=== PATIENT | male | born 1960 | race Caucasian/White ===

== ENCOUNTER 2018-07-09 00:03 | Observation (INO) ==
[2018-07-09] MEDS ORDERED: SODIUM CHLORIDE 0.9% 1,000 ML IV STA ×2 (00:48→01:44)
[2018-07-09 00:59] LABS: Basophils # 0.2 10*3/uL (0.0-0.2); Basophils % 0.9 % (0.0-0.8); Eosinophils % 5.8 % (0.00-10.9); Hematocrit 42.3 VOL% (42.0-52.0); Hemoglobin 13.5 GM/DL (14.0-18.0); Immature Granulocytes % 0.3 %; Immature Granulocytes Absolute 0.06 #; Lymphocytes # 5.8 10*3/uL (1.4-4.0); Lymphocytes % 32.8 % (21.2-54.2); Mean Corpuscular HGB Conc 31.9 GM/DL (32-36); Mean Corpuscular Volume 85.3 FL (87-102); Mean Platelet Volume 10.9 FL (9.6-12.0); Monocytes % 10.8 % (1.7-12.7); NRBC # 0.04 10*3/uL; Neutrophils % 49.4 % (38.7-73.9); Platelet Count 421 T/CUMM (130-400); Red Blood Count 4.96 MC/CUMM (3.8-5.5); Red Cell Distribution Width 18.5 % (9.3-17.3); White Blood Count 17.8 T/CUMM (4-12)
[2018-07-09 01:28] LABS: Alanine Aminotransferase 31 U/L (16-61); Albumin 3.5 G/DL (3.4-5.0); Alkaline Phosphatase 101 U/L (45-117); Aspartate Amino Transferase 18 U/L (0-37); Bilirubin,Total < 0.39 MG/DL (0.2-1.0); Blood Urea Nitrogen 21 MG/DL (7-18); Calcium 9.1 MG/DL (8.5-10.1); Glucose 283 MG/DL (74-106); Osmolality,Calculated 289.5 MOS/KG (273-304)
[2018-07-09] MEDS ORDERED: ONDANSETRON 4 MG/2 ML VIAL IV PRN (04:04)
[2018-07-09] MEDS ORDERED: ACETAMINOPHEN 325 MG TABLET PO PRN (04:04)
[2018-07-09 04:43] LABS: Apearance,Urine CLEAR (Clear); Bilirubin,Urine Negative (Negative); Blood, Urine Negative (Negative); Glucose,Urine (UA) 50 mg/dL (Negative); Granular Casts,Urine 1 /LPF (0-1); Hyaline Casts,Urine 17 /LPF (0-3); Ketones,Urine Negative (Negative); Mucus,Urine Occasional /LPF (Occasional); Nitrite,Urine Negative (Negative); Protein,Urine 30 MG/DL; RBC,Urine <1 /HPF (0-4); Urine Color Yellow (Yellow); Urine Specific Gravity 1.016 (1.001-1.035); Urine Urobilinogen < 2.0 EU/DL (0.2-1.0); WBC,Urine 1 /HPF (0-6)
[2018-07-09] MEDS: DEXTROSE 5% NACL 0.9% 1,000 ML IV SCH ×3 (06:05→20:43)
[2018-07-09] MEDS ORDERED: PNEUMOCOCCAL VACCINE (23 VALENT) 0.5 ML VIAL IM ONE (06:39)
[2018-07-09] MEDS ORDERED: DEXTROSE 50% 25 GM/50 ML SYRINGE IV PRN (08:06)
[2018-07-09] MEDS ORDERED: GLUCAGON 1 MG VIAL IM PRN (08:06)
[2018-07-09] MEDS: DOCUSATE SODIUM 100 MG CAPSULE PO SCH ×2 (09:37→20:42)
[2018-07-09] MEDS: PANTOPRAZOLE 40 MG VIAL IV SCH (09:37)
[2018-07-09] MEDS: INSULIN LISPRO 100 UNIT/ML SUBCUT SCH ×3 (12:00→20:42)
[2018-07-09] MEDS: metFORMIN 500 MG TABLET PO SCH (16:29)
[2018-07-10] MEDS: metFORMIN 500 MG TABLET PO SCH (08:21)
[2018-07-10] MEDS: DOCUSATE SODIUM 100 MG CAPSULE PO SCH ×2 (08:22→20:46)
[2018-07-10] MEDS: PANTOPRAZOLE 40 MG VIAL IV SCH (08:22)
[2018-07-10] MEDS: SERTRALINE 100 MG TABLET PO SCH (08:22)
[2018-07-10] MEDS: INSULIN LISPRO 100 UNIT/ML SUBCUT SCH ×4 (08:22→21:25)
[2018-07-10] MEDS: AMITRIPTYLINE 50 MG TABLET PO SCH (08:22)
[2018-07-10] MEDS ORDERED: LOSARTAN/HCTZ 50-12.5 MG TABLET PO SCH (09:00)
[2018-07-10] MEDS ORDERED: hydrALAZINE 20 MG/1 ML VIAL IV ONE (12:33)
[2018-07-10] MEDS: CARVEDILOL 25 MG TABLET PO SCH ×2 (15:23→20:46)
[2018-07-10] MEDS: SODIUM CHLORIDE 0.9% 1,000 ML IV SCH (15:28)
[2018-07-10 15:51] LABS: Basophils # 0.1 10*3/uL (0.0-0.2); Basophils % 0.9 % (0.0-0.8); Eosinophils # 0.6 10*3/uL (0.0-0.87); Eosinophils % 5.1 % (0.00-10.9); Hematocrit 41.5 VOL% (42.0-52.0); Hemoglobin 13.1 GM/DL (14.0-18.0); Immature Granulocytes % 0.3 %; Immature Granulocytes Absolute 0.03 #; Lymphocytes # 3.8 10*3/uL (1.4-4.0); Lymphocytes % 33.6 % (21.2-54.2); Mean Corpuscular HGB Conc 31.6 GM/DL (32-36); Mean Corpuscular Volume 84.9 FL (87-102); Monocytes % 10.6 % (1.7-12.7); Neutrophils % 49.5 % (38.7-73.9); Platelet Count 378 T/CUMM (130-400); Red Blood Count 4.89 MC/CUMM (3.8-5.5); Red Cell Distribution Width 17.7 % (9.3-17.3); White Blood Count 11.2 T/CUMM (4-12)
[2018-07-10 16:18] LABS: Calcium 9.2 MG/DL (8.5-10.1); Osmolality,Calculated 279.7 MOS/KG (273-304); Thyroid Stimulating Hormone 3.7 uIU/ml (0.358-3.74); Uric Acid 3.6 MG/DL (3.5-7.2)
[2018-07-10] MEDS: FOLIC ACID 1 MG TABLET PO SCH (20:46)
[2018-07-11 04:53] LABS: Basophils # 0.1 10*3/uL (0.0-0.2); Basophils % 0.9 % (0.0-0.8); Eosinophils # 0.6 10*3/uL (0.0-0.87); Hemoglobin 13.6 GM/DL (14.0-18.0); Immature Granulocytes % 0.4 %; Immature Granulocytes Absolute 0.04 #; Lymphocytes # 3.2 10*3/uL (1.4-4.0); Mean Corpuscular HGB Conc 30.9 GM/DL (32-36); Mean Corpuscular Volume 85.4 FL (87-102); Mean Platelet Volume 10.7 FL (9.6-12.0); Monocytes % 9.5 % (1.7-12.7); Neutrophils % 53.2 % (38.7-73.9); Platelet Count 403 T/CUMM (130-400); Red Blood Count 5.15 MC/CUMM (3.8-5.5); Red Cell Distribution Width 17.9 % (9.3-17.3); White Blood Count 10.6 T/CUMM (4-12)
[2018-07-11] MEDS: SODIUM CHLORIDE 0.9% 1,000 ML IV SCH (04:53)
[2018-07-11 05:17] LABS: Calcium 8.8 MG/DL (8.5-10.1); Osmolality,Calculated 282.8 MOS/KG (273-304)
[2018-07-11] MEDS ORDERED: GLIMEPIRIDE 2 MG TABLET PO SCH (08:00)
[2018-07-11] MEDS: FOLIC ACID 1 MG TABLET PO SCH ×3 (08:02→20:00)
[2018-07-11] MEDS: LOSARTAN/HCTZ 50-12.5 MG TABLET PO SCH (08:02)
[2018-07-11] MEDS: SERTRALINE 100 MG TABLET PO SCH (08:03)
[2018-07-11] MEDS: cloNIDine 0.1 MG TABLET PO SCH (08:03)
[2018-07-11] MEDS: DOCUSATE SODIUM 100 MG CAPSULE PO SCH ×3 (08:03→20:00)
[2018-07-11] MEDS: INSULIN LISPRO 100 UNIT/ML SUBCUT SCH ×4 (08:03→20:00)
[2018-07-11] MEDS: CARVEDILOL 25 MG TABLET PO SCH ×3 (08:03→20:00)
[2018-07-11] MEDS: AMITRIPTYLINE 50 MG TABLET PO SCH (08:03)
[2018-07-11] MEDS: PANTOPRAZOLE 40 MG VIAL IV SCH (08:04)
[2018-07-11] MEDS: DEXTROSE 5% NACL 0.9% 1,000 ML IV SCH (16:44)
[2018-07-12 05:15] LABS: Calcium 9.3 MG/DL (8.5-10.1); Osmolality,Calculated 278.4 MOS/KG (273-304)
[2018-07-12] MEDS ORDERED: POTASSIUM CHLORIDE 20 MEQ TABLET PO ONE (05:23)
[2018-07-12] MEDS: POTASSIUM CHLORIDE 20 MEQ TABLET PO PRN ×5 (05:35→20:52)
[2018-07-12] MEDS ORDERED: GLIMEPIRIDE 2 MG TABLET PO SCH (08:00)
[2018-07-12] MEDS: INSULIN LISPRO 100 UNIT/ML SUBCUT SCH ×4 (08:14→20:25)
[2018-07-12] MEDS: DOCUSATE SODIUM 100 MG CAPSULE PO SCH ×2 (09:40→20:53)
[2018-07-12] MEDS: FOLIC ACID 1 MG TABLET PO SCH ×2 (09:40→20:53)
[2018-07-12] MEDS: LOSARTAN/HCTZ 50-12.5 MG TABLET PO SCH (09:40)
[2018-07-12] MEDS: CARVEDILOL 25 MG TABLET PO SCH ×2 (09:40→20:53)
[2018-07-12] MEDS: cloNIDine 0.1 MG TABLET PO SCH (09:40)
[2018-07-12] MEDS: AMITRIPTYLINE 50 MG TABLET PO SCH (09:40)
[2018-07-12] MEDS: SERTRALINE 100 MG TABLET PO SCH (09:40)
[2018-07-12] MEDS: INSULIN GLARGINE 100 UNIT/ML SUBCUT SCH (09:45)
[2018-07-12] MEDS: PANTOPRAZOLE 40 MG VIAL IV SCH (09:46)
[2018-07-12] MEDS: metFORMIN 500 MG TABLET PO SCH (17:32)
[2018-07-13 08:26] VITALS: BP 152/94
[2018-07-13] MEDS: CARVEDILOL 25 MG TABLET PO SCH (09:34)
[2018-07-13] MEDS: AMITRIPTYLINE 50 MG TABLET PO SCH (09:34)
[2018-07-13] MEDS: DOCUSATE SODIUM 100 MG CAPSULE PO SCH (09:34)
[2018-07-13] MEDS: cloNIDine 0.1 MG TABLET PO SCH (09:34)
[2018-07-13] MEDS: FOLIC ACID 1 MG TABLET PO SCH (09:34)
[2018-07-13] MEDS: SERTRALINE 100 MG TABLET PO SCH (09:34)
[2018-07-13] MEDS: PANTOPRAZOLE 40 MG VIAL IV SCH (09:34)
[2018-07-13] MEDS: metFORMIN 500 MG TABLET PO SCH (09:34)
[2018-07-13] MEDS: LOSARTAN/HCTZ 50-12.5 MG TABLET PO SCH (09:34)
[2018-07-13] MEDS: INSULIN LISPRO 100 UNIT/ML SUBCUT SCH (09:45)
[2018-07-13] MEDS: INSULIN GLARGINE 100 UNIT/ML SUBCUT SCH (09:47)
== END 2018-07-13 11:00 | disposition home or self-care (01) ==
LOC: N.EDINP 00:03 → N.ED 00:03 → N.TELES 04:56
PROVIDERS: ADMIT Family Medicine; ATTEND Internal Medicine

== ENCOUNTER 2019-07-03 12:54 | Inpatient (IN) ==
[2019-07-03] MEDS ORDERED: ASPIRIN 325 MG TABLET PO STA (13:18)
[2019-07-03] MEDS ORDERED: ENOXAPARIN 30 MG/0.3 ML SYRINGE IV STA (13:26)
[2019-07-03] MEDS ORDERED: ENOXAPARIN 100 MG/ML SYRINGE SUBCUT STA (13:26)
[2019-07-03] MEDS ORDERED: ENOXAPARIN 100 MG/ML SYRINGE SUBCUT ONE (13:27)
[2019-07-03 13:37] LABS: Basophils # 0.1 10*3/uL (0.0-0.2); Basophils % 0.9 % (0.0-0.8); Eosinophils # 0.3 10*3/uL (0.0-0.87); Eosinophils % 1.9 % (0.00-10.9); Hematocrit 40.3 VOL% (42.0-52.0); Hemoglobin 12.9 GM/DL (14.0-18.0); Immature Granulocytes % 0.2 %; Immature Granulocytes Absolute 0.03 #; Lymphocytes # 2.1 10*3/uL (1.4-4.0); Lymphocytes % 14.9 % (21.2-54.2); Mean Corpuscular Volume 84.3 FL (87-102); Mean Platelet Volume 9.7 FL (9.6-12.0); Monocytes % 6.8 % (1.7-12.7); NRBC # 0.02 10*3/uL; Neutrophils % 75.3 % (38.7-73.9); Platelet Count 390 T/CUMM (130-400); Red Blood Count 4.78 MC/CUMM (3.8-5.5); Red Cell Distribution Width 18.3 % (9.3-17.3)
[2019-07-03] MEDS ORDERED: NITROGLYCERIN SL 0.4 MG TABLET SL ONE (13:41)
[2019-07-03 13:43] LABS: PT Patient Result 10.6 SECS (9.8-11.9)
[2019-07-03 13:50] LABS: Calcium 9.1 MG/DL (8.5-10.1); Osmolality,Calculated 280.1 MOS/KG (273-304)
[2019-07-03] MEDS ORDERED: HYDROmorphone 2 MG/1 ML VIAL ONE (13:59)
[2019-07-03] MEDS ORDERED: MIDAZOLAM 2 MG/2 ML VIAL ONE (13:59)
[2019-07-03] MEDS ORDERED: LIDOCAINE 1% 20 ML VIAL ONE (13:59)
[2019-07-03] MEDS ORDERED: TIROFIBAN 5,000 MCG/100 ML PREMIX IV ONE (14:22)
[2019-07-03] MEDS ORDERED: TIROFIBAN 5,000 MCG/100 ML PREMIX IV SCH (14:35)
[2019-07-03] MEDS ORDERED: TICAGRELOR 90 MG TABLET ONE (15:01)
[2019-07-03] MEDS ORDERED: ROSUVASTATIN 20 MG TABLET PO SCH (15:11)
[2019-07-03 16:18] LABS: CKMB % 2.1 %
[2019-07-03 16:26] LABS: Troponin I 1.62 NG/ML (0.00-0.045)
[2019-07-03] MEDS ORDERED: GLUCAGON 1 MG VIAL IM PRN (16:57)
[2019-07-03] MEDS ORDERED: DEXTROSE 50% 25 GM/50 ML VIAL IV PRN (16:57)
[2019-07-03] MEDS ORDERED: carvediloL 3.125 MG TABLET PO SCH (21:00)
[2019-07-03] MEDS: carvediloL 12.5 MG TABLET PO SCH (21:32)
[2019-07-03] MEDS: ROSUVASTATIN 20 MG TABLET PO SCH (21:32)
[2019-07-04] MEDS: AMITRIPTYLINE 50 MG TABLET PO SCH (08:51)
[2019-07-04] MEDS: ROSUVASTATIN 20 MG TABLET PO SCH (08:51)
[2019-07-04] MEDS: carvediloL 12.5 MG TABLET PO SCH ×2 (08:51→20:18)
[2019-07-04] MEDS: SERTRALINE 100 MG TABLET PO SCH (08:51)
[2019-07-04] MEDS: TICAGRELOR 90 MG TABLET PO SCH ×2 (09:27→20:19)
[2019-07-04] MEDS: ASPIRIN EC 81 MG TABLET PO SCH (09:27)
[2019-07-04] MEDS ORDERED: diphenhydrAMINE CAP 25 MG CAPSULE PO PRN (11:16)
[2019-07-04] MEDS ORDERED: MAGNESIUM HYDROXIDE SUSP 30 ML UDCUP PO PRN (11:16)
[2019-07-04 11:29] LABS: Basophils # 0.1 10*3/uL (0.0-0.2); Basophils % 0.5 % (0.0-0.8); Eosinophils # 0.3 10*3/uL (0.0-0.87); Eosinophils % 2.4 % (0.00-10.9); Hematocrit 40.1 VOL% (42.0-52.0); Hemoglobin 13.3 GM/DL (14.0-18.0); Immature Granulocytes % 0.5 %; Immature Granulocytes Absolute 0.06 #; Lymphocytes # 2.9 10*3/uL (1.4-4.0); Lymphocytes % 22.2 % (21.2-54.2); Mean Corpuscular HGB Conc 33.2 GM/DL (32-36); Mean Corpuscular Volume 82.2 FL (87-102); Monocytes % 8.9 % (1.7-12.7); Neutrophils % 65.5 % (38.7-73.9); Platelet Count 404 T/CUMM (130-400); Red Blood Count 4.88 MC/CUMM (3.8-5.5); Red Cell Distribution Width 18.3 % (9.3-17.3); White Blood Count 13.2 T/CUMM (4-12)
[2019-07-04] MEDS ORDERED: INSULIN LISPRO 100 UNIT/ML SUBCUT SCH (11:30)
[2019-07-04 11:45] LABS: Calcium 9.1 MG/DL (8.5-10.1)
[2019-07-04 11:53] LABS: CKMB % 5.4 %; Calcium 9.6 MG/DL (8.5-10.1); Osmolality,Calculated 267.2 MOS/KG (273-304)
[2019-07-04 11:56] LABS: Troponin I 19.5 NG/ML (0.00-0.045)
[2019-07-04] MEDS: LOSARTAN 25 MG TABLET PO SCH (16:05)
[2019-07-04] MEDS: OMEGA 3 ACID ETHYL ESTERS 1 GM CAPSULE PO SCH (20:18)
[2019-07-04] MEDS ORDERED: ROSUVASTATIN 20 MG TABLET PO SCH (21:00)
[2019-07-05 06:17] LABS: Basophils # 0.1 10*3/uL (0.0-0.2); Basophils % 0.6 % (0.0-0.8); Eosinophils # 0.7 10*3/uL (0.0-0.87); Eosinophils % 4.2 % (0.00-10.9); Hematocrit 41.2 VOL% (42.0-52.0); Hemoglobin 13.4 GM/DL (14.0-18.0); Immature Granulocytes % 0.4 %; Immature Granulocytes Absolute 0.06 #; Lymphocytes # 4.3 10*3/uL (1.4-4.0); Lymphocytes % 27.9 % (21.2-54.2); Mean Corpuscular HGB Conc 32.5 GM/DL (32-36); Mean Corpuscular Volume 83.4 FL (87-102); Mean Platelet Volume 10.2 FL (9.6-12.0); Monocytes % 11.5 % (1.7-12.7); NRBC # 0.02 10*3/uL; Neutrophils % 55.4 % (38.7-73.9); Platelet Count 416 T/CUMM (130-400); Red Blood Count 4.94 MC/CUMM (3.8-5.5); Red Cell Distribution Width 18.5 % (9.3-17.3); White Blood Count 15.4 T/CUMM (4-12)
[2019-07-05 06:38] LABS: Calcium 8.8 MG/DL (8.5-10.1); Osmolality,Calculated 272.1 MOS/KG (273-304)
[2019-07-05] MEDS ORDERED: POTASSIUM CHLORIDE 20 MEQ TABLET PO ONE (07:30)
[2019-07-05 07:54] VITALS: BP 162/95
[2019-07-05] MEDS: AMITRIPTYLINE 50 MG TABLET PO SCH (09:28)
[2019-07-05] MEDS: LOSARTAN 25 MG TABLET PO SCH (09:28)
[2019-07-05] MEDS: TICAGRELOR 90 MG TABLET PO SCH (09:28)
[2019-07-05] MEDS: SERTRALINE 100 MG TABLET PO SCH (09:28)
[2019-07-05] MEDS: ASPIRIN EC 81 MG TABLET PO SCH (09:28)
[2019-07-05] MEDS: OMEGA 3 ACID ETHYL ESTERS 1 GM CAPSULE PO SCH (09:28)
[2019-07-05] MEDS: carvediloL 12.5 MG TABLET PO SCH (09:28)
== END 2019-07-05 10:27 | disposition home or self-care (01) | DRG 247 ==
LOC: N.ED 12:54 → N.EDINP 14:15 → N.ICU 14:38 → N.TELEN 07-04 10:51
PROVIDERS: ADMIT Internal Medicine Cardiovascular Disease; ATTEND Internal Medicine Cardiovascular Disease
PROC: CLCCHCL (ICD-10-PCS; 2019-07-03 14:45)

== ENCOUNTER 2019-11-14 19:05 | Observation (INO) ==
[2019-11-14] MEDS ORDERED: ASPIRIN 325 MG TABLET PO STA (19:41)
[2019-11-14 19:59] LABS: Basophils # 0.1 10*3/uL (0.0-0.2); Basophils % 0.7 % (0.0-0.8); Eosinophils # 0.5 10*3/uL (0.0-0.87); Hematocrit 36.7 VOL% (42.0-52.0); Hemoglobin 11.8 GM/DL (14.0-18.0); Immature Granulocytes % 0.2 %; Immature Granulocytes Absolute 0.02 #; Lymphocytes # 4.7 10*3/uL (1.4-4.0); Lymphocytes % 43.7 % (21.2-54.2); Mean Corpuscular HGB Conc 32.2 GM/DL (32-36); Mean Corpuscular Volume 82.3 FL (87-102); Mean Platelet Volume 9.9 FL (9.6-12.0); Monocytes % 8.7 % (1.7-12.7); NRBC # 0.02 10*3/uL; Neutrophils % 41.7 % (38.7-73.9); Platelet Count 314 T/CUMM (130-400); Red Blood Count 4.46 MC/CUMM (3.8-5.5); Red Cell Distribution Width 18.3 % (9.3-17.3); White Blood Count 10.8 T/CUMM (4-12)
[2019-11-14 20:01] LABS: Calcium 8.6 MG/DL (8.5-10.1); Osmolality,Calculated 284.7 MOS/KG (273-304)
[2019-11-14] MEDS ORDERED: MORPHINE 4 MG/1 ML VIAL IV STA (20:16)
[2019-11-14] MEDS ORDERED: MORPHINE 4 MG/1 ML VIAL IV PRN (20:16)
[2019-11-14] MEDS ORDERED: ACETAMINOPHEN 325 MG TABLET PO PRN (20:16)
[2019-11-14] MEDS ORDERED: ONDANSETRON 4 MG/2 ML VIAL IV PRN (20:16)
[2019-11-14] MEDS ORDERED: ONDANSETRON 4 MG/2 ML VIAL IV STA (20:16)
[2019-11-14] MEDS: ENOXAPARIN 40 MG/0.4 ML SYRINGE SUBCUT SCH (22:47)
[2019-11-14] MEDS: DOCUSATE SODIUM 100 MG CAPSULE PO SCH (22:47)
[2019-11-14] MEDS: ROSUVASTATIN 20 MG TABLET PO SCH (22:52)
[2019-11-15] MEDS: FOLIC ACID 1 MG TABLET PO SCH ×2 (08:46→21:06)
[2019-11-15] MEDS: AMITRIPTYLINE 50 MG TABLET PO SCH (08:46)
[2019-11-15] MEDS: CLOPIDOGREL 75 MG TABLET PO SCH (08:46)
[2019-11-15] MEDS: LOSARTAN 50 MG TABLET PO SCH (08:46)
[2019-11-15] MEDS: DOCUSATE SODIUM 100 MG CAPSULE PO SCH ×2 (08:46→21:06)
[2019-11-15] MEDS: ASPIRIN EC 81 MG TABLET PO SCH (08:46)
[2019-11-15] MEDS: PANTOPRAZOLE 40 MG TABLET PO SCH (08:47)
[2019-11-15] MEDS: SERTRALINE 100 MG TABLET PO SCH (08:47)
[2019-11-15] MEDS ORDERED: INSULIN LISPRO 100 UNIT/ML SUBCUT SCH (11:30)
[2019-11-15] MEDS: INSULIN LISPRO 100 UNIT/ML SUBCUT SCH ×4 (13:00→21:11)
[2019-11-15] MEDS: ENOXAPARIN 40 MG/0.4 ML SYRINGE SUBCUT SCH (21:06)
[2019-11-15] MEDS: ROSUVASTATIN 20 MG TABLET PO SCH (21:06)
[2019-11-16 06:33] LABS: Basophils # 0.1 10*3/uL (0.0-0.2); Basophils % 0.8 % (0.0-0.8); Eosinophils # 0.7 10*3/uL (0.0-0.87); Eosinophils % 6.2 % (0.00-10.9); Hematocrit 39.1 VOL% (42.0-52.0); Hemoglobin 12.2 GM/DL (14.0-18.0); Immature Granulocytes % 0.4 %; Immature Granulocytes Absolute 0.05 #; Lymphocytes # 3.3 10*3/uL (1.4-4.0); Lymphocytes % 27.7 % (21.2-54.2); Mean Corpuscular HGB Conc 31.2 GM/DL (32-36); Mean Corpuscular Volume 82.8 FL (87-102); Mean Platelet Volume 10.6 FL (9.6-12.0); Monocytes % 10.1 % (1.7-12.7); NRBC # 0.04 10*3/uL; Neutrophils % 54.8 % (38.7-73.9); Platelet Count 342 T/CUMM (130-400); Red Blood Count 4.72 MC/CUMM (3.8-5.5); Red Cell Distribution Width 18.3 % (9.3-17.3)
[2019-11-16 07:03] LABS: Calcium 8.9 MG/DL (8.5-10.1); Osmolality,Calculated 280.1 MOS/KG (273-304)
[2019-11-16 08:47] VITALS: BP 166/78
[2019-11-16] MEDS: CLOPIDOGREL 75 MG TABLET PO SCH (09:15)
[2019-11-16] MEDS: LOSARTAN 50 MG TABLET PO SCH (09:15)
[2019-11-16] MEDS: PANTOPRAZOLE 40 MG TABLET PO SCH (09:15)
[2019-11-16] MEDS: SERTRALINE 100 MG TABLET PO SCH (09:15)
[2019-11-16] MEDS: FOLIC ACID 1 MG TABLET PO SCH (09:16)
[2019-11-16] MEDS: ASPIRIN EC 81 MG TABLET PO SCH (09:16)
[2019-11-16] MEDS: AMITRIPTYLINE 50 MG TABLET PO SCH (09:16)
[2019-11-16] MEDS: DOCUSATE SODIUM 100 MG CAPSULE PO SCH (09:16)
[2019-11-16] MEDS: INSULIN LISPRO 100 UNIT/ML SUBCUT SCH (09:16)
[2019-11-17] MEDS ORDERED: ERGOCALCIFEROL 50,000 UNIT CAPSULE PO SCH (08:27)
[2019-11-17] MEDS ORDERED: METHOTREXATE 2.5 MG TABLET PO SCH (09:00)
== END 2019-11-16 11:30 | disposition home or self-care (01) ==
LOC: N.EDINP 19:05 → N.ED 19:05 → N.TELEN 20:44
PROVIDERS: ADMIT Internal Medicine; ATTEND Internal Medicine

== ENCOUNTER 2020-12-17 17:53 | Observation (INO) ==
[2020-12-17 18:25] LABS: Basophils # 0.1 10*3/uL (0.0-0.2); Basophils % 0.7 % (0.0-0.8); Eosinophils # 0.8 10*3/uL (0.0-0.87); Eosinophils % 5.3 % (0.00-10.9); Hematocrit 37.7 VOL% (42.0-52.0); Hemoglobin 11.6 GM/DL (14.0-18.0); Immature Granulocytes % 0.3 %; Immature Granulocytes Absolute 0.04 #; Lymphocytes # 5.8 10*3/uL (1.4-4.0); Lymphocytes % 37.6 % (21.2-54.2); Mean Corpuscular HGB Conc 30.8 GM/DL (32-36); Mean Corpuscular Volume 80.2 FL (87-102); Mean Platelet Volume 10.5 FL (9.6-12.0); Monocytes % 6.7 % (1.7-12.7); NRBC # 0.04 10*3/uL; Neutrophils % 49.4 % (38.7-73.9); Platelet Count 317 T/CUMM (130-400); Red Cell Distribution Width 20.1 % (9.3-17.3); White Blood Count 15.3 T/CUMM (4-12)
[2020-12-17 18:48] LABS: Alanine Aminotransferase 34 U/L (16-61); Albumin 3.2 G/DL (3.4-5.0); Alkaline Phosphatase 88 U/L (45-117); Aspartate Amino Transferase 20 U/L (0-37); Bilirubin,Total < 0.39 MG/DL (0.20-1.00); Blood Urea Nitrogen 19 MG/DL (7-18); Calcium 9.2 MG/DL (8.5-10.1); Carbon Dioxide 28 MMOL/L (21-32); Estimated Glom Filtration Rate 64 ML/MIN; Glucose 394 MG/DL (74-106); Osmolality,Calculated 290.8 MOS/KG (273-304); Potassium 4.5 MMOL/L (3.5-5.1); Sodium 137 MMOL/L (136-145); Total Protein 6.5 G/DL (6.4-8.2)
[2020-12-17] MEDS ORDERED: ALUM/MAG/SIMETH/LIDO VISC 1:1 30 ML BOTTLE PO STA (19:33)
[2020-12-17] MEDS ORDERED: ENOXAPARIN 100 MG/ML SYRINGE SUBCUT STA (19:33)
[2020-12-17] MEDS ORDERED: ONDANSETRON 4 MG/2 ML VIAL IV STA (19:33)
[2020-12-17] MEDS ORDERED: ASPIRIN 325 MG TABLET PO STA (19:33)
[2020-12-17] MEDS ORDERED: MORPHINE 2 MG/1 ML SYRINGE IV STA (19:33)
[2020-12-17] MEDS ORDERED: NITROGLYCERIN 2% OINT 1 INCH/GM PACK TOP STA (19:33)
[2020-12-17] MEDS ORDERED: ONDANSETRON 4 MG/2 ML VIAL IV PRN (23:13)
[2020-12-17] MEDS ORDERED: DEXTROSE 50% 25 GM/50 ML VIAL IV PRN (23:13)
[2020-12-17] MEDS ORDERED: MORPHINE 2 MG/1 ML SYRINGE IV PRN (23:13)
[2020-12-17] MEDS ORDERED: GLUCAGON 1 MG VIAL IM PRN (23:13)
[2020-12-17] MEDS: DOCUSATE SODIUM 100 MG CAPSULE PO SCH (23:47)
[2020-12-17] MEDS: SODIUM CHLORIDE 0.9% 1,000 ML IV SCH (23:47)
[2020-12-17] MEDS: FOLIC ACID 1 MG TABLET PO SCH (23:47)
[2020-12-17] MEDS: ROSUVASTATIN 20 MG TABLET PO SCH (23:47)
[2020-12-17] MEDS: INSULIN REGULAR 100 UNIT/ML SUBCUT SCH (23:47)
[2020-12-17] MEDS: NITROGLYCERIN 2% OINT 1 INCH/GM PACK TOP SCH (23:56)
[2020-12-18 05:45] LABS: Basophils # 0.1 10*3/uL (0.0-0.2); Basophils % 0.9 % (0.0-0.8); Eosinophils % 7.7 % (0.00-10.9); Hematocrit 35.5 VOL% (42.0-52.0); Hemoglobin 10.9 GM/DL (14.0-18.0); Immature Granulocytes % 0.3 %; Immature Granulocytes Absolute 0.04 #; Lymphocytes # 5.3 10*3/uL (1.4-4.0); Lymphocytes % 39.5 % (21.2-54.2); Mean Corpuscular HGB Conc 30.7 GM/DL (32-36); Mean Corpuscular Volume 80.7 FL (87-102); Mean Platelet Volume 10.6 FL (9.6-12.0); Monocytes % 8.6 % (1.7-12.7); NRBC # 0.06 10*3/uL; Platelet Count 303 T/CUMM (130-400); Red Cell Distribution Width 20.2 % (9.3-17.3); White Blood Count 13.5 T/CUMM (4-12)
[2020-12-18] MEDS: INSULIN REGULAR 100 UNIT/ML SUBCUT SCH (05:46)
[2020-12-18 06:40] LABS: Albumin 2.8 G/DL (3.4-5.0); Bilirubin,Total 0.4 MG/DL (0.20-1.00); Calcium 8.4 MG/DL (8.5-10.1); Osmolality,Calculated 284.4 MOS/KG (273-304); Potassium 4.3 MMOL/L (3.5-5.1); Risk Ratio 2.15; Total Protein 5.9 G/DL (6.4-8.2)
[2020-12-18] MEDS: MELOXICAM 7.5 MG TABLET PO SCH (08:01)
[2020-12-18] MEDS: CLOPIDOGREL 75 MG TABLET PO SCH (08:02)
[2020-12-18] MEDS: NITROGLYCERIN 2% OINT 1 INCH/GM PACK TOP SCH ×2 (08:02→20:17)
[2020-12-18] MEDS: FOLIC ACID 1 MG TABLET PO SCH ×2 (08:02→20:17)
[2020-12-18] MEDS: LOSARTAN 50 MG TABLET PO SCH (08:02)
[2020-12-18] MEDS: DOCUSATE SODIUM 100 MG CAPSULE PO SCH ×2 (08:03→20:16)
[2020-12-18] MEDS: SERTRALINE 100 MG TABLET PO SCH (08:03)
[2020-12-18] MEDS: AMITRIPTYLINE 25 MG TABLET PO SCH (08:03)
[2020-12-18] MEDS: PANTOPRAZOLE 40 MG TABLET PO SCH (08:03)
[2020-12-18] MEDS ORDERED: DEXTROSE 50% 25 GM/50 ML VIAL IV PRN (08:58)
[2020-12-18] MEDS ORDERED: PANTOPRAZOLE 40 MG VIAL IV SCH (09:00)
[2020-12-18] MEDS ORDERED: ASPIRIN EC 325 MG TABLET PO SCH (09:00)
[2020-12-18] MEDS: INSULIN GLARGINE 100 UNIT/ML SUBCUT SCH (09:01)
[2020-12-18] MEDS: metFORMIN 500 MG TABLET PO SCH ×2 (09:02→20:17)
[2020-12-18] MEDS: AZITHROMYCIN 250 MG TABLET PO SCH (09:02)
[2020-12-18] MEDS: carvediloL 25 MG TABLET PO SCH ×2 (09:03→20:16)
[2020-12-18] MEDS: CYANOCOBALAMIN 500 MCG TABLET PO SCH (09:03)
[2020-12-18] MEDS: cefTRIAXone 1,000 MG in SODIUM CHLORIDE 0.9% 100 ML IV SCH (09:04)
[2020-12-18] MEDS: ACETAMINOPHEN 325 MG TABLET PO PRN ×2 (09:17→20:18)
[2020-12-18] MEDS: INSULIN LISPRO 100 UNIT/ML SUBCUT SCH ×3 (11:47→20:17)
[2020-12-18] MEDS: ROSUVASTATIN 20 MG TABLET PO SCH (20:16)
[2020-12-18] MEDS: SODIUM CHLORIDE 0.9% 1,000 ML IV SCH (20:30)
[2020-12-19] MEDS ORDERED: guaiFENesin 200 MG/10 ML UDCUP PO PRN (02:49)
[2020-12-19 05:27] LABS: Basophils # 0.1 10*3/uL (0.0-0.2); Basophils % 0.6 % (0.0-0.8); Eosinophils % 5.6 % (0.00-10.9); Hematocrit 34.5 VOL% (42.0-52.0); Hemoglobin 10.6 GM/DL (14.0-18.0); Immature Granulocytes % 0.6 %; Immature Granulocytes Absolute 0.11 #; Lymphocytes # 2.9 10*3/uL (1.4-4.0); Lymphocytes % 16.6 % (21.2-54.2); Mean Corpuscular HGB Conc 30.7 GM/DL (32-36); Mean Corpuscular Volume 80.8 FL (87-102); Mean Platelet Volume 11.3 FL (9.6-12.0); NRBC # 0.11 10*3/uL; Neutrophils % 65.6 % (38.7-73.9); Platelet Count 288 T/CUMM (130-400); Red Blood Count 4.27 MC/CUMM (3.8-5.5); Red Cell Distribution Width 20.1 % (9.3-17.3); White Blood Count 17.3 T/CUMM (4-12)
[2020-12-19] MEDS: ACETAMINOPHEN 325 MG TABLET PO PRN (05:29)
[2020-12-19] MEDS: MELOXICAM 7.5 MG TABLET PO SCH (08:19)
[2020-12-19] MEDS: DOCUSATE SODIUM 100 MG CAPSULE PO SCH ×2 (08:20→20:52)
[2020-12-19] MEDS: SERTRALINE 100 MG TABLET PO SCH (08:20)
[2020-12-19] MEDS: AMITRIPTYLINE 25 MG TABLET PO SCH (08:20)
[2020-12-19] MEDS: CLOPIDOGREL 75 MG TABLET PO SCH (08:20)
[2020-12-19] MEDS: carvediloL 25 MG TABLET PO SCH ×2 (08:20→20:51)
[2020-12-19] MEDS: AZITHROMYCIN 250 MG TABLET PO SCH (08:20)
[2020-12-19] MEDS: PANTOPRAZOLE 40 MG TABLET PO SCH (08:20)
[2020-12-19] MEDS: FOLIC ACID 1 MG TABLET PO SCH ×2 (08:20→20:52)
[2020-12-19] MEDS: CYANOCOBALAMIN 500 MCG TABLET PO SCH (08:20)
[2020-12-19] MEDS: LOSARTAN 50 MG TABLET PO SCH (08:20)
[2020-12-19] MEDS: metFORMIN 500 MG TABLET PO SCH ×2 (08:20→20:52)
[2020-12-19] MEDS: ASPIRIN EC 81 MG TABLET PO SCH (08:21)
[2020-12-19] MEDS: INSULIN GLARGINE 100 UNIT/ML SUBCUT SCH (08:21)
[2020-12-19] MEDS: ENOXAPARIN 40 MG/0.4 ML SYRINGE SUBCUT SCH (08:54)
[2020-12-19] MEDS: INSULIN LISPRO 100 UNIT/ML SUBCUT SCH ×4 (08:54→20:59)
[2020-12-19] MEDS: NITROGLYCERIN 2% OINT 1 INCH/GM PACK TOP SCH (08:55)
[2020-12-19] MEDS ORDERED: ENOXAPARIN 100 MG/ML SYRINGE SUBCUT SCH (09:00)
[2020-12-19] MEDS: cefTRIAXone 1,000 MG in SODIUM CHLORIDE 0.9% 100 ML IV SCH (09:32)
[2020-12-19] MEDS: ISOSORBIDE MONONITRATE 30 MG TABLET PO SCH (09:44)
[2020-12-19] MEDS: SODIUM CHLORIDE 0.9% 1,000 ML IV SCH (18:14)
[2020-12-19] MEDS: ROSUVASTATIN 20 MG TABLET PO SCH (20:52)
[2020-12-20 05:15] LABS: Basophils # 0.1 10*3/uL (0.0-0.2); Basophils % 0.6 % (0.0-0.8); Eosinophils # 0.8 10*3/uL (0.0-0.87); Eosinophils % 6.4 % (0.00-10.9); Hematocrit 34.1 VOL% (42.0-52.0); Hemoglobin 10.8 GM/DL (14.0-18.0); Immature Granulocytes % 0.4 %; Immature Granulocytes Absolute 0.05 #; Lymphocytes # 3.3 10*3/uL (1.4-4.0); Lymphocytes % 25.9 % (21.2-54.2); Mean Corpuscular HGB Conc 31.7 GM/DL (32-36); Mean Corpuscular Volume 79.9 FL (87-102); Mean Platelet Volume 11.5 FL (9.6-12.0); Monocytes % 10.9 % (1.7-12.7); NRBC # 0.11 10*3/uL; Neutrophils % 55.8 % (38.7-73.9); Platelet Count 285 T/CUMM (130-400); Red Blood Count 4.27 MC/CUMM (3.8-5.5); Red Cell Distribution Width 20.3 % (9.3-17.3); White Blood Count 12.9 T/CUMM (4-12)
[2020-12-20 05:42] LABS: Albumin 2.7 G/DL (3.4-5.0); Calcium 8.5 MG/DL (8.5-10.1); Osmolality,Calculated 276.5 MOS/KG (273-304); Potassium 3.6 MMOL/L (3.5-5.1); Total Protein 6.1 G/DL (6.4-8.2)
[2020-12-20 08:33] VITALS: BP 171/93
[2020-12-20] MEDS: ENOXAPARIN 40 MG/0.4 ML SYRINGE SUBCUT SCH (08:41)
[2020-12-20] MEDS: CLOPIDOGREL 75 MG TABLET PO SCH (08:42)
[2020-12-20] MEDS: LOSARTAN 50 MG TABLET PO SCH (08:42)
[2020-12-20] MEDS: CYANOCOBALAMIN 500 MCG TABLET PO SCH (08:42)
[2020-12-20] MEDS: AMITRIPTYLINE 25 MG TABLET PO SCH (08:42)
[2020-12-20] MEDS: carvediloL 25 MG TABLET PO SCH (08:42)
[2020-12-20] MEDS: PANTOPRAZOLE 40 MG TABLET PO SCH (08:43)
[2020-12-20] MEDS: DOCUSATE SODIUM 100 MG CAPSULE PO SCH (08:43)
[2020-12-20] MEDS: MELOXICAM 7.5 MG TABLET PO SCH (08:43)
[2020-12-20] MEDS: AZITHROMYCIN 250 MG TABLET PO SCH (08:43)
[2020-12-20] MEDS: metFORMIN 500 MG TABLET PO SCH (08:43)
[2020-12-20] MEDS: cefTRIAXone 1,000 MG in SODIUM CHLORIDE 0.9% 100 ML IV SCH (08:44)
[2020-12-20] MEDS: FOLIC ACID 1 MG TABLET PO SCH (08:44)
[2020-12-20] MEDS: ISOSORBIDE MONONITRATE 30 MG TABLET PO SCH (08:44)
[2020-12-20] MEDS: SERTRALINE 100 MG TABLET PO SCH (08:44)
[2020-12-20] MEDS: ASPIRIN EC 81 MG TABLET PO SCH (08:44)
[2020-12-20] MEDS ORDERED: ERGOCALCIFEROL 50,000 UNIT CAPSULE PO SCH (09:00)
[2020-12-20] MEDS ORDERED: METHOTREXATE 2.5 MG TABLET PO SCH ×2 (09:00)
[2020-12-20] MEDS: INSULIN GLARGINE 100 UNIT/ML SUBCUT SCH (09:34)
[2020-12-20] MEDS: INSULIN LISPRO 100 UNIT/ML SUBCUT SCH (09:34)
[2020-12-20] MEDS ORDERED: INFLUENZA VIRUS VACCINE 0.5 ML SYRINGE IM ONE (12:30)
== END 2020-12-20 12:16 | disposition home or self-care (01) ==
LOC: N.EDINP 17:53 → N.ED 17:53 → N.EDINP 22:56 → N.CC 23:01 → N.3E 12-19 17:42
PROVIDERS: ADMIT Internal Medicine; ATTEND Internal Medicine

== ENCOUNTER 2021-04-22 20:54 | Inpatient (IN) ==
[2021-04-23 00:19] LABS: Alanine Aminotransferase 36 U/L (16-61); Albumin 2.5 G/DL (3.4-5.0); Alkaline Phosphatase 95 U/L (45-117); Aspartate Amino Transferase 29 U/L (0-37); Bilirubin,Total < 0.39 MG/DL (0.20-1.00); Blood Urea Nitrogen 17 MG/DL (7-18); Calcium 9.1 MG/DL (8.5-10.1); Carbon Dioxide 28 MMOL/L (21-32); Estimated Glom Filtration Rate 43 ML/MIN; Glucose 180 MG/DL (74-106); Osmolality,Calculated 281.7 MOS/KG (273-304); Potassium 3.9 MMOL/L (3.5-5.1); Sodium 138 MMOL/L (136-145); Total Protein 7.3 G/DL (6.4-8.2)
[2021-04-23] MEDS ORDERED: VANCOMYCIN INJ 1,000 MG in SODIUM CHLORIDE 0.9% 250 ML IV STA (00:51)
[2021-04-23] MEDS ORDERED: SODIUM CHLORIDE 0.9% 2,100 ML IV STA (00:51)
[2021-04-23 00:53] LABS: Basophils # 0.1 10*3/uL (0.0-0.2); Basophils % 0.7 % (0.0-0.8); Eosinophils # 0.7 10*3/uL (0.0-0.87); Eosinophils % 4.7 % (0.00-10.9); Hematocrit 35.7 VOL% (42.0-52.0); Hemoglobin 11.1 GM/DL (14.0-18.0); Immature Granulocytes % 0.4 %; Immature Granulocytes Absolute 0.06 #; Lymphocytes % 32.5 % (21.2-54.2); Mean Corpuscular HGB Conc 31.1 GM/DL (32-36); Mean Corpuscular Volume 81.9 FL (87-102); Monocytes % 4.3 % (1.7-12.7); NRBC # 0.03 10*3/uL; Neutrophils % 57.4 % (38.7-73.9); Platelet Count 440 T/CUMM (130-400); Red Blood Count 4.36 MC/CUMM (3.8-5.5); Red Cell Distribution Width 20.5 % (9.3-17.3); White Blood Count 15.2 T/CUMM (4-12)
[2021-04-23] MEDS ORDERED: VANCOMYCIN 1,000 MG VIAL ONE (01:20)
[2021-04-23] MEDS ORDERED: ACETAMINOPHEN 325 MG TABLET PO PRN (01:21)
[2021-04-23] MEDS ORDERED: GLUCAGON 1 MG VIAL IM PRN (01:21)
[2021-04-23] MEDS ORDERED: ONDANSETRON 4 MG/2 ML VIAL IV PRN (01:21)
[2021-04-23] MEDS ORDERED: DEXTROSE 10% 250 ML BAG IV PRN (01:37)
[2021-04-23 01:39] LABS: PT Patient Result 10.9 SECS (10.5-12.0); Partial Thromboplastin Time 25.8 SECS (23.8-32.1)
[2021-04-23] MEDS ORDERED: MORPHINE 4 MG/1 ML VIAL IV PRN (02:16)
[2021-04-23] MEDS: CLINDAMYCIN INJ 600 MG/50 ML PREMIX IV SCH ×3 (03:17→17:25)
[2021-04-23] MEDS: SODIUM CHLORIDE 0.9% 1,000 ML IV SCH ×2 (03:17→10:19)
[2021-04-23] MEDS ORDERED: INSULIN LISPRO 100 UNIT/ML SUBCUT SCH (06:00)
[2021-04-23] MEDS: carvediloL 25 MG TABLET PO SCH ×2 (10:19→20:33)
[2021-04-23] MEDS: PANTOPRAZOLE 40 MG TABLET PO SCH (10:19)
[2021-04-23] MEDS: CLOPIDOGREL 75 MG TABLET PO SCH (10:19)
[2021-04-23] MEDS: INSULIN GLARGINE 100 UNIT/ML SUBCUT SCH (10:25)
[2021-04-23] MEDS: ENOXAPARIN 40 MG/0.4 ML SYRINGE SUBCUT SCH (10:50)
[2021-04-23] MEDS: DAPAGLIFLOZIN 5 MG TABLET PO SCH (11:19)
[2021-04-23] MEDS: INSULIN LISPRO 100 UNIT/ML SUBCUT SCH ×3 (11:29→20:33)
[2021-04-23] MEDS ORDERED: VANCOMYCIN INJ 1,000 MG in SODIUM CHLORIDE 0.9% 250 ML IV SCH (18:00)
[2021-04-23] MEDS: SERTRALINE 100 MG TABLET PO SCH (20:33)
[2021-04-23] MEDS: AMITRIPTYLINE 50 MG TABLET PO SCH (20:33)
[2021-04-23] MEDS: ROSUVASTATIN 20 MG TABLET PO SCH (20:33)
[2021-04-24] MEDS: CLINDAMYCIN INJ 600 MG/50 ML PREMIX IV SCH ×3 (02:16→16:14)
[2021-04-24] MEDS: SODIUM CHLORIDE 0.9% 1,000 ML IV SCH ×3 (02:17→20:58)
[2021-04-24 06:18] LABS: Basophils # 0.1 10*3/uL (0.0-0.2); Basophils % 0.8 % (0.0-0.8); Eosinophils # 0.9 10*3/uL (0.0-0.87); Eosinophils % 8.1 % (0.00-10.9); Hematocrit 33.7 VOL% (42.0-52.0); Hemoglobin 10.4 GM/DL (14.0-18.0); Immature Granulocytes % 0.4 %; Immature Granulocytes Absolute 0.04 #; Lymphocytes # 3.9 10*3/uL (1.4-4.0); Lymphocytes % 35.3 % (21.2-54.2); Mean Corpuscular HGB Conc 30.9 GM/DL (32-36); Mean Corpuscular Volume 81.2 FL (87-102); Mean Platelet Volume 10.7 FL (9.6-12.0); Monocytes % 8.6 % (1.7-12.7); NRBC # 0.04 10*3/uL; Neutrophils % 46.8 % (38.7-73.9); Platelet Count 409 T/CUMM (130-400); Red Blood Count 4.15 MC/CUMM (3.8-5.5); Red Cell Distribution Width 20.6 % (9.3-17.3)
[2021-04-24 06:28] LABS: Calcium 8.6 MG/DL (8.5-10.1); Osmolality,Calculated 275.7 MOS/KG (273-304); Potassium 3.7 MMOL/L (3.5-5.1)
[2021-04-24] MEDS: INSULIN GLARGINE 100 UNIT/ML SUBCUT SCH (08:22)
[2021-04-24] MEDS: INSULIN LISPRO 100 UNIT/ML SUBCUT SCH ×4 (08:23→20:58)
[2021-04-24] MEDS: CLOPIDOGREL 75 MG TABLET PO SCH (08:24)
[2021-04-24] MEDS: DAPAGLIFLOZIN 5 MG TABLET PO SCH (08:25)
[2021-04-24] MEDS: PANTOPRAZOLE 40 MG TABLET PO SCH (08:25)
[2021-04-24] MEDS: carvediloL 25 MG TABLET PO SCH ×2 (08:25→20:57)
[2021-04-24] MEDS: SERTRALINE 100 MG TABLET PO SCH (20:57)
[2021-04-24] MEDS: FOLIC ACID 1 MG TABLET PO SCH (20:57)
[2021-04-24] MEDS: AMITRIPTYLINE 50 MG TABLET PO SCH (20:57)
[2021-04-24] MEDS: ROSUVASTATIN 20 MG TABLET PO SCH (20:57)
[2021-04-24] MEDS: metFORMIN 500 MG TABLET PO SCH (20:58)
[2021-04-24] MEDS: ENOXAPARIN 40 MG/0.4 ML SYRINGE SUBCUT SCH (20:58)
[2021-04-25] MEDS: CLINDAMYCIN INJ 600 MG/50 ML PREMIX IV SCH ×3 (00:59→16:54)
[2021-04-25 05:26] LABS: Basophils # 0.1 10*3/uL (0.0-0.2); Basophils % 0.8 % (0.0-0.8); Eosinophils # 0.9 10*3/uL (0.0-0.87); Eosinophils % 7.9 % (0.00-10.9); Hematocrit 34.6 VOL% (42.0-52.0); Immature Granulocytes % 0.5 %; Immature Granulocytes Absolute 0.06 #; Lymphocytes # 4.2 10*3/uL (1.4-4.0); Lymphocytes % 35.6 % (21.2-54.2); Mean Corpuscular HGB Conc 31.8 GM/DL (32-36); Mean Corpuscular Volume 80.3 FL (87-102); Mean Platelet Volume 9.9 FL (9.6-12.0); Monocytes % 10.6 % (1.7-12.7); NRBC # 0.09 10*3/uL; Neutrophils % 44.6 % (38.7-73.9); Platelet Count 422 T/CUMM (130-400); Red Blood Count 4.31 MC/CUMM (3.8-5.5); Red Cell Distribution Width 20.6 % (9.3-17.3); White Blood Count 11.8 T/CUMM (4-12)
[2021-04-25 05:38] LABS: Calcium 8.8 MG/DL (8.5-10.1); Osmolality,Calculated 278.5 MOS/KG (273-304); Potassium 3.9 MMOL/L (3.5-5.1)
[2021-04-25] MEDS: SODIUM CHLORIDE 0.9% 1,000 ML IV SCH ×2 (06:01→06:02)
[2021-04-25] MEDS: INSULIN LISPRO 100 UNIT/ML SUBCUT SCH ×4 (09:10→22:15)
[2021-04-25] MEDS: metFORMIN 500 MG TABLET PO SCH ×2 (09:11→20:46)
[2021-04-25] MEDS: DAPAGLIFLOZIN 5 MG TABLET PO SCH (09:12)
[2021-04-25] MEDS: LOSARTAN 50 MG TABLET PO SCH (09:13)
[2021-04-25] MEDS: carvediloL 25 MG TABLET PO SCH ×2 (09:13→20:45)
[2021-04-25] MEDS: CLOPIDOGREL 75 MG TABLET PO SCH (09:13)
[2021-04-25] MEDS: ASPIRIN EC 81 MG TABLET PO SCH (09:14)
[2021-04-25] MEDS: FOLIC ACID 1 MG TABLET PO SCH ×2 (09:14→20:45)
[2021-04-25] MEDS: INSULIN GLARGINE 100 UNIT/ML SUBCUT SCH (09:14)
[2021-04-25] MEDS: PANTOPRAZOLE 40 MG TABLET PO SCH (10:10)
[2021-04-25] MEDS: ROSUVASTATIN 20 MG TABLET PO SCH (20:45)
[2021-04-25] MEDS: SERTRALINE 100 MG TABLET PO SCH (20:45)
[2021-04-25] MEDS: AMITRIPTYLINE 50 MG TABLET PO SCH (20:45)
[2021-04-25] MEDS: ENOXAPARIN 40 MG/0.4 ML SYRINGE SUBCUT SCH (20:46)
[2021-04-26] MEDS: CLINDAMYCIN INJ 600 MG/50 ML PREMIX IV SCH ×2 (00:44→09:24)
[2021-04-26 06:37] LABS: Basophils # 0.1 10*3/uL (0.0-0.2); Basophils % 0.7 % (0.0-0.8); Eosinophils % 6.4 % (0.00-10.9); Hematocrit 37.6 VOL% (42.0-52.0); Hemoglobin 11.9 GM/DL (14.0-18.0); Immature Granulocytes % 0.5 %; Immature Granulocytes Absolute 0.07 #; Lymphocytes # 3.6 10*3/uL (1.4-4.0); Mean Corpuscular HGB Conc 31.6 GM/DL (32-36); Mean Platelet Volume 9.9 FL (9.6-12.0); Monocytes % 8.8 % (1.7-12.7); NRBC # 0.08 10*3/uL; Neutrophils % 59.6 % (38.7-73.9); Platelet Count 414 T/CUMM (130-400); Red Blood Count 4.64 MC/CUMM (3.8-5.5); Red Cell Distribution Width 21.2 % (9.3-17.3); White Blood Count 14.9 T/CUMM (4-12)
[2021-04-26 06:55] LABS: Calcium 8.7 MG/DL (8.5-10.1); Osmolality,Calculated 273.8 MOS/KG (273-304); Potassium 3.6 MMOL/L (3.5-5.1)
[2021-04-26 07:58] VITALS: BP 161/87
[2021-04-26] MEDS: FOLIC ACID 1 MG TABLET PO SCH (09:15)
[2021-04-26] MEDS: metFORMIN 500 MG TABLET PO SCH (09:15)
[2021-04-26] MEDS: LOSARTAN 50 MG TABLET PO SCH (09:15)
[2021-04-26] MEDS: ASPIRIN EC 81 MG TABLET PO SCH (09:15)
[2021-04-26] MEDS: DAPAGLIFLOZIN 5 MG TABLET PO SCH (09:15)
[2021-04-26] MEDS: CLOPIDOGREL 75 MG TABLET PO SCH (09:16)
[2021-04-26] MEDS: carvediloL 25 MG TABLET PO SCH (09:16)
[2021-04-26] MEDS: PANTOPRAZOLE 40 MG TABLET PO SCH (09:16)
[2021-04-26] MEDS: INSULIN LISPRO 100 UNIT/ML SUBCUT SCH (09:17)
[2021-04-26] MEDS: INSULIN GLARGINE 100 UNIT/ML SUBCUT SCH (09:18)
== END 2021-04-26 10:08 | disposition home or self-care (01) | DRG 603 ==
LOC: N.ED 20:54 → N.EDINP 04-23 01:21 → N.5E 04-23 16:47
PROVIDERS: ADMIT Internal Medicine; ATTEND Internal Medicine

== ENCOUNTER 2021-10-13 14:41 | Inpatient (IN) ==
[2021-10-13] MEDS ORDERED: SODIUM CHLORIDE 0.9% 1,000 ML IV STA (15:16)
[2021-10-13 15:26] LABS: Basophils # 0.1 10*3/uL (0.0-0.2); Basophils % 0.6 % (0.0-0.8); Eosinophils # 0.5 10*3/uL (0.0-0.87); Eosinophils % 4.4 % (0.00-10.9); Hematocrit 37.3 VOL% (42.0-52.0); Hemoglobin 11.9 GM/DL (14.0-18.0); Immature Granulocytes % 0.3 %; Immature Granulocytes Absolute 0.04 #; Lymphocytes # 3.2 10*3/uL (1.4-4.0); Lymphocytes % 27.3 % (21.2-54.2); Mean Corpuscular HGB Conc 31.9 GM/DL (32-36); Mean Corpuscular Volume 85.4 FL (87-102); Mean Platelet Volume 11.1 FL (9.6-12.0); Monocytes # 1.4 10*3/uL (0.11-0.8); Monocytes % 11.4 % (1.7-12.7); Platelet Count 328 T/CUMM (130-400); Red Blood Count 4.37 MC/CUMM (3.8-5.5); Red Cell Distribution Width 18.1 % (9.3-17.3); White Blood Count 11.9 T/CUMM (4-12)
[2021-10-13 15:38] LABS: INR 1.1; PT Patient Result 11.6 SECS (10.1-12.1)
[2021-10-13 15:42] LABS: Bilirubin,Total 0.4 MG/DL (0.20-1.00); Calcium 8.9 MG/DL (8.5-10.1); Osmolality,Calculated 286.6 MOS/KG (273-304); Potassium 3.1 MMOL/L (3.5-5.1); Total Protein 6.2 G/DL (6.4-8.2)
[2021-10-13] MEDS ORDERED: DEXTROSE 50% 25 GM/50 ML SYRINGE IV ONE (15:53)
[2021-10-13] MEDS ORDERED: DEXTROSE 50% 25 GM/50 ML VIAL IV STA (15:53)
[2021-10-13] MEDS ORDERED: DEXTROSE 50% 25 GM/50 ML SYRINGE IV STA (15:55)
[2021-10-13] MEDS ORDERED: POTASSIUM CHLORIDE 20 MEQ TABLET PO STA (16:09)
[2021-10-13] MEDS ORDERED: ACETAMINOPHEN 325 MG TABLET PO PRN (16:59)
[2021-10-13] MEDS ORDERED: ONDANSETRON 4 MG/2 ML VIAL IV PRN (16:59)
[2021-10-13] MEDS: SODIUM CHLORIDE 0.9% 1,000 ML IV SCH (18:26)
[2021-10-13] MEDS ORDERED: MECLIZINE 25 MG TABLET PO PRN (18:52)
[2021-10-13] MEDS ORDERED: METHOCARBAMOL 750 MG TABLET PO PRN (18:52)
[2021-10-13] MEDS ORDERED: GLUCAGON 1 MG VIAL IM PRN (18:53)
[2021-10-13 19:22] LABS: Barbiturates Screen,Urine Negative (Negative); Benzodiazepines Screen,Urine Negative (Negative); Cannabinoid Screen,Urine Negative (Negative); Opiate Screen,Urine Negative (Negative); Phencyclidine Screen,Urine Negative (Negative)
[2021-10-13] MEDS ORDERED: DEXTROSE 10% 250 ML BAG IV PRN (19:56)
[2021-10-13] MEDS: INSULIN LISPRO 100 UNIT/ML SUBCUT SCH (20:14)
[2021-10-13] MEDS: carvediloL 25 MG TABLET PO SCH (21:26)
[2021-10-13] MEDS: DOCUSATE SODIUM 100 MG CAPSULE PO SCH (21:27)
[2021-10-13] MEDS: AMITRIPTYLINE 50 MG TABLET PO SCH (21:27)
[2021-10-13] MEDS: FOLIC ACID 1 MG TABLET PO SCH (21:27)
[2021-10-13] MEDS: GABAPENTIN 300 MG CAPSULE PO SCH (21:27)
[2021-10-14 04:48] LABS: Basophils # 0.1 10*3/uL (0.0-0.2); Basophils % 0.6 % (0.0-0.8); Eosinophils # 0.6 10*3/uL (0.0-0.87); Eosinophils % 3.7 % (0.00-10.9); Hematocrit 34.7 VOL% (42.0-52.0); Hemoglobin 10.9 GM/DL (14.0-18.0); Immature Granulocytes % 0.4 %; Immature Granulocytes Absolute 0.07 #; Lymphocytes # 5.3 10*3/uL (1.4-4.0); Mean Corpuscular HGB Conc 31.4 GM/DL (32-36); Mean Corpuscular Volume 85.3 FL (87-102); Monocytes # 1.5 10*3/uL (0.11-0.8); Monocytes % 9.7 % (1.7-12.7); Neutrophils % 51.6 % (38.7-73.9); Platelet Count 302 T/CUMM (130-400); Red Blood Count 4.07 MC/CUMM (3.8-5.5); Red Cell Distribution Width 18.6 % (9.3-17.3); White Blood Count 15.6 T/CUMM (4-12)
[2021-10-14 05:27] LABS: Albumin 2.5 G/DL (3.4-5.0); Bilirubin,Total 0.4 MG/DL (0.20-1.00); Calcium 8.6 MG/DL (8.5-10.1); Potassium 3.6 MMOL/L (3.5-5.1); Total Protein 5.6 G/DL (6.4-8.2)
[2021-10-14] MEDS: SODIUM CHLORIDE 0.9% 1,000 ML IV SCH ×2 (05:49→18:20)
[2021-10-14] MEDS: INSULIN LISPRO 100 UNIT/ML SUBCUT SCH ×4 (08:28→22:11)
[2021-10-14] MEDS ORDERED: LOSARTAN 50 MG TABLET PO SCH (09:00)
[2021-10-14] MEDS ORDERED: amLODIPine 5 MG TABLET PO SCH (09:00)
[2021-10-14] MEDS ORDERED: MAGNESIUM SULF RIDER 2 GM/50 ML PREMIX IV ONE (09:14)
[2021-10-14] MEDS: ASPIRIN EC 325 MG TABLET PO SCH (09:44)
[2021-10-14] MEDS: DOCUSATE SODIUM 100 MG CAPSULE PO SCH ×2 (09:44→22:12)
[2021-10-14] MEDS: MULTIVITAMIN (CENTRUM) TABLET PO SCH (09:44)
[2021-10-14] MEDS: ROSUVASTATIN 20 MG TABLET PO SCH (09:44)
[2021-10-14] MEDS: carvediloL 25 MG TABLET PO SCH ×2 (09:45→22:12)
[2021-10-14] MEDS: CLOPIDOGREL 75 MG TABLET PO SCH (09:45)
[2021-10-14] MEDS: SERTRALINE 100 MG TABLET PO SCH (09:45)
[2021-10-14] MEDS: PANTOPRAZOLE 40 MG TABLET PO SCH (09:45)
[2021-10-14] MEDS: ISOSORBIDE MONONITRATE 30 MG TABLET PO SCH (09:45)
[2021-10-14] MEDS: MELOXICAM 7.5 MG TABLET PO SCH (09:45)
[2021-10-14] MEDS: FOLIC ACID 1 MG TABLET PO SCH ×2 (09:45→22:11)
[2021-10-14 10:49] LABS: % Iron Saturation 14.7 % (18-50); Ferritin 30.3 ng/mL (26-388)
[2021-10-14] MEDS: GABAPENTIN 300 MG CAPSULE PO SCH (22:11)
[2021-10-14] MEDS: AMITRIPTYLINE 50 MG TABLET PO SCH (22:12)
[2021-10-15] MEDS: SODIUM CHLORIDE 0.9% 1,000 ML IV SCH (03:40)
[2021-10-15 05:19] LABS: Basophils # 0.1 10*3/uL (0.0-0.2); Basophils % 0.6 % (0.0-0.8); Eosinophils # 0.9 10*3/uL (0.0-0.87); Eosinophils % 6.6 % (0.00-10.9); Hematocrit 31.4 VOL% (42.0-52.0); Hemoglobin 10.2 GM/DL (14.0-18.0); Immature Granulocytes % 0.3 %; Immature Granulocytes Absolute 0.04 #; Lymphocytes # 4.8 10*3/uL (1.4-4.0); Lymphocytes % 36.7 % (21.2-54.2); Mean Corpuscular HGB Conc 32.5 GM/DL (32-36); Mean Corpuscular Volume 85.6 FL (87-102); Mean Platelet Volume 11.8 FL (9.6-12.0); Monocytes # 1.5 10*3/uL (0.11-0.8); Monocytes % 11.3 % (1.7-12.7); Neutrophils % 44.5 % (38.7-73.9); Platelet Count 286 T/CUMM (130-400); Red Blood Count 3.67 MC/CUMM (3.8-5.5); Red Cell Distribution Width 18.5 % (9.3-17.3); White Blood Count 13.2 T/CUMM (4-12)
[2021-10-15 05:49] LABS: Calcium 8.3 MG/DL (8.5-10.1); Osmolality,Calculated 287.3 MOS/KG (273-304)
[2021-10-15] MEDS: INSULIN LISPRO 100 UNIT/ML SUBCUT SCH ×4 (08:40→21:13)
[2021-10-15] MEDS: carvediloL 25 MG TABLET PO SCH ×2 (09:59→21:12)
[2021-10-15] MEDS: MULTIVITAMIN (CENTRUM) TABLET PO SCH (09:59)
[2021-10-15] MEDS: DOCUSATE SODIUM 100 MG CAPSULE PO SCH ×2 (09:59→21:12)
[2021-10-15] MEDS: ASPIRIN EC 325 MG TABLET PO SCH (09:59)
[2021-10-15] MEDS: PANTOPRAZOLE 40 MG TABLET PO SCH (10:00)
[2021-10-15] MEDS: LOSARTAN 50 MG TABLET PO SCH (10:00)
[2021-10-15] MEDS: ISOSORBIDE MONONITRATE 30 MG TABLET PO SCH (10:00)
[2021-10-15] MEDS: FOLIC ACID 1 MG TABLET PO SCH ×2 (10:00→21:12)
[2021-10-15] MEDS: ROSUVASTATIN 20 MG TABLET PO SCH (10:00)
[2021-10-15] MEDS: CLOPIDOGREL 75 MG TABLET PO SCH (10:00)
[2021-10-15] MEDS: metFORMIN 500 MG TABLET PO SCH ×2 (10:00→21:12)
[2021-10-15] MEDS: FERROUS SULFATE 325 MG TABLET PO SCH ×2 (10:00→21:12)
[2021-10-15] MEDS: MELOXICAM 7.5 MG TABLET PO SCH (10:00)
[2021-10-15] MEDS: SERTRALINE 100 MG TABLET PO SCH (10:00)
[2021-10-15] MEDS ORDERED: COSYNTROPIN 0.25 MG VIAL IV ONE (13:00)
[2021-10-15] MEDS ORDERED: INSULIN GLARGINE 100 UNIT/ML SUBCUT SCH (21:00)
[2021-10-15] MEDS: amLODIPine 5 MG TABLET PO SCH (21:12)
[2021-10-15] MEDS: AMITRIPTYLINE 50 MG TABLET PO SCH (21:12)
[2021-10-15] MEDS: GABAPENTIN 300 MG CAPSULE PO SCH (21:12)
[2021-10-16 04:38] LABS: Basophils # 0.1 10*3/uL (0.0-0.2); Basophils % 0.5 % (0.0-0.8); Eosinophils # 0.6 10*3/uL (0.0-0.87); Eosinophils % 3.9 % (0.00-10.9); Hematocrit 33.8 VOL% (42.0-52.0); Hemoglobin 10.6 GM/DL (14.0-18.0); Immature Granulocytes % 0.3 %; Immature Granulocytes Absolute 0.05 #; Lymphocytes # 6.2 10*3/uL (1.4-4.0); Lymphocytes % 38.8 % (21.2-54.2); Mean Corpuscular HGB Conc 31.4 GM/DL (32-36); Mean Corpuscular Volume 85.8 FL (87-102); Mean Platelet Volume 11.4 FL (9.6-12.0); Monocytes # 1.7 10*3/uL (0.11-0.8); Monocytes % 10.4 % (1.7-12.7); Neutrophils % 46.1 % (38.7-73.9); Platelet Count 277 T/CUMM (130-400); Red Blood Count 3.94 MC/CUMM (3.8-5.5); White Blood Count 16.1 T/CUMM (4-12)
[2021-10-16 05:01] LABS: Osmolality,Calculated 280.4 MOS/KG (273-304); Potassium 3.3 MMOL/L (3.5-5.1)
[2021-10-16 05:15] LABS: Eosinophils 5 % (0-10); Hypochromia Slight; Lymphocytes 38 % (20-55); Microcytosis Slight; Platelet Estimate Adequate; Total Cells Counted 100
[2021-10-16] MEDS: INSULIN LISPRO 100 UNIT/ML SUBCUT SCH ×2 (08:10→12:38)
[2021-10-16] MEDS ORDERED: POTASSIUM CHLORIDE 20 MEQ TABLET PO ONE ×2 (08:33→08:56)
[2021-10-16] MEDS ORDERED: MAGNESIUM SULF RIDER 2 GM/50 ML PREMIX IV ONE (08:33)
[2021-10-16] MEDS: ASPIRIN EC 325 MG TABLET PO SCH (09:15)
[2021-10-16] MEDS: LOSARTAN 50 MG TABLET PO SCH (09:15)
[2021-10-16] MEDS: PANTOPRAZOLE 40 MG TABLET PO SCH (09:15)
[2021-10-16] MEDS: DOCUSATE SODIUM 100 MG CAPSULE PO SCH (09:15)
[2021-10-16] MEDS: amLODIPine 5 MG TABLET PO SCH (09:16)
[2021-10-16] MEDS: ROSUVASTATIN 20 MG TABLET PO SCH (09:16)
[2021-10-16] MEDS: MELOXICAM 7.5 MG TABLET PO SCH (09:16)
[2021-10-16] MEDS: carvediloL 25 MG TABLET PO SCH (09:16)
[2021-10-16] MEDS: ISOSORBIDE MONONITRATE 30 MG TABLET PO SCH (09:16)
[2021-10-16] MEDS: SERTRALINE 100 MG TABLET PO SCH (09:16)
[2021-10-16] MEDS: metFORMIN 500 MG TABLET PO SCH (09:17)
[2021-10-16] MEDS: MULTIVITAMIN (CENTRUM) TABLET PO SCH (09:17)
[2021-10-16] MEDS: FERROUS SULFATE 325 MG TABLET PO SCH (09:17)
[2021-10-16] MEDS: FOLIC ACID 1 MG TABLET PO SCH (09:17)
[2021-10-16 15:35] VITALS: BP 142/79
[2021-10-17] MEDS ORDERED: METHOTREXATE 2.5 MG TABLET PO SCH (09:00)
[2021-10-17] MEDS ORDERED: ERGOCALCIFEROL 50,000 UNIT CAPSULE PO SCH (09:00)
== END 2021-10-16 15:25 | disposition home or self-care (01) | DRG 312 ==
LOC: EDUNIT# → EDBD → N.ED 14:41 → N.EDINP 16:59 → N.TELES 18:25
PROVIDERS: ADMIT Internal Medicine; ATTEND Internal Medicine